=== PATIENT | female | born 1930 | race Caucasian/White ===

== ENCOUNTER 2017-01-21 15:27 | Emergency (ER) | payer MEDICARE, OTHER ==
[~2017-01-21] VITALS: Ht 157.5 cm; Wt 78.0 kg
[~2017-01-21 15:27] MED LIST: ASPI-664 PO; ATOR10TA65 PO; AZIT250T6 PO; CARV12.598 PO; CLOB15CR19; ECON15CR; FOLI-49 PO; LORA1TAB PO; MCN2C15; METO50TA16 PO; NIT4 SL; NPH,100V SC; OLOP2.5D; OMEP40CA6 PO; POTA8TAB46 PO; PSEU30TA38 PO; RESTOP4; SITA100T8 PO; TICA90TA PO; ZOLP10TA5 PO
[2017-01-21 15:33] VITALS: Ht 157.5 cm; Wt 78.0 kg
== END 2017-01-21 21:30 | disposition left against medical advice (07) ==
LOC: E/R 15:27
DX: Z53.21 Procedure and treatment not carried out due to patient leaving prior to being seen by health care provider (principal)

== ENCOUNTER 2017-06-13 07:20 | Inpatient (IN) | payer MEDICARE, OTHER ==
[2017-06-12 16:14] VITALS: BMI 29.3
[2017-06-13] VITALS (25 sets, daily range): BP systolic 108–166; BP diastolic 45–70; PULSE 58–86; RESP 13–25; Ht 157.5 cm; Wt 74.0 kg
[~2017-06-13] VITALS: Ht 157.5 cm; Wt 74.0 kg
[~2017-06-13 07:20] MED LIST changes: +DIAZEPAM 5 MG TAB PO SCH; +DIPHENHYDRAMINE 50 MG CAP PO SCH; +FAMOTIDINE 20 MG TAB PO SCH; +METO-319 PO; -METO50TA16 PO; +SOD CHLORIDE 0.45% 1,000 ML IV SCH
[2017-06-13 08:17] LABS: BASOPHILS % 0.4 % (0.0-2.0); EOSINOPHILS # 0.4 10^3/ul (0.0-0.5); EOSINOPHILS % 5.1 % (0.0-7.0); HEMATOCRIT 34.1 % (37.0-47.0); LYMPHOCYTES # 2.3 10^3/ul (0.8-2.9); MEAN CORPUSCULAR HGB CONC 32.3 g/dl (32.0-37.0); MEAN CORPUSCULAR VOLUME 83.8 fl (82.0-101.0); MEAN PLATELET VOLUME 11.6 fl (7.4-10.4); MONOCYTE # 0.5 10^3/ul (0.3-0.9); MONOCYTES % 6.3 % (0.0-11.0); NEUTROPHIL # 3.9 10^3/ul (1.6-7.5); NEUTROPHILS % 54.9 % (39.0-77.0); PLATELET COUNT 283 10^3/UL (140-415); RED BLOOD COUNT 4.07 10^6/ul (4.20-5.40); RED CELL DISTRIBUTION WIDTH 14.2 % (11.5-14.5); WHITE BLOOD COUNT 7.1 10^3/ul (4.8-10.8)
--- NOTE | 2017-06-13 08:47 | RADRPT ---
PROCEDURE: XR Chest 1 View. CLINICAL INDICATION: Abnormal breath sounds, preop. TECHNIQUE: AP view of the chest was obtained. COMPARISON: CR CHEST 09/13/2015 FINDINGS: The heart size is within normal limits. Calcified atherosclerosis is noted in the aorta. Scattered atelectasis is seen in the bilateral lower lobes. No consolidations are identified. No pneumothorax is seen. Osseous structures are intact. IMPRESSION: Calcified atherosclerosis in the aorta. Scattered atelectasis in the bilateral lower lobes. RPTAT: AA .Dhruv Edgar MD, Date Time Electronically viewed and signed by .Dhruv Edgar MD, on 06/13/2017 08:46 .P/
[2017-06-13 08:51] LABS: CALCIUM 9.6 mg/dl (8.4-10.2); CREATININE 0.84 mg/dl (0.44-1.00); POTASSIUM 4.5 mmol/L (3.5-5.1)
[2017-06-13 08:55] LABS: INR 0.95; PROTIME 12.7 Sec (12.2-14.2)
[2017-06-13 08:56] LABS: PARTIAL THROMBOPLASTIN TIME 28.2 Sec (25.0-35.0)
[2017-06-13] MEDS ORDERED: HEPARIN 1000 UNITS/ML 10 ML INJ ONE ×2 (09:20→09:21)
[2017-06-13] MEDS ORDERED: LIDOCAINE 1% (MDV) 20 ML INJ ONE (09:21)
[2017-06-13] MEDS ORDERED: IODIXANOL LOCM 100 ML BTL ONE (09:21)
[2017-06-13] MEDS ORDERED: NITROGLYCERIN (IC) 100 MCG/ML INJ ONE (09:21)
[2017-06-13] MEDS ORDERED: VERAPAMIL 5 MG INJ ONE (09:21)
[2017-06-13] MEDS ORDERED: MIDAZOLAM 1 MG/ML 2 ML INJ ONE (09:22)
[2017-06-13] MEDS ORDERED: FENTAnyl 50 MCG/ML VIAL ONE ×2 (09:23→10:21)
[2017-06-13] MEDS ORDERED: SOD CHLORIDE 0.9% 1,000 ML IV SCH (10:26)
--- NOTE | 2017-06-13 10:26 | SIPON ---
Date/Time of Note Date/Time of Note DATE: 06/13/17 TIME: 10:21 Operative Report Preoperative Diagnosis 1.Nstemi 2.Chest pain Postoperative Diagnosis 1.Obstructive cad 2.Cardiomyopathy with depressed LVEF Operation/Procedure Performed 1.[facility] Surgeon see signature line surgical physician assistant Olinda Anesthesia: moderate sedation Estimated blood loss: minimal Transfusion Required none Specimen NA Grafts/Implants none Complications none HODA DEL ANGEL Jun 13, 2017 10:26
[2017-06-13] MEDS: HOLD all METFORMIN and METFORMIN CONTAINING medications for 48 hours post procedure. Chec XX SCH (10:30)
[2017-06-13] MEDS ORDERED: AL HYDROX/MG HYDROX/SIMETH 30 ML CUP PO PRN (10:30)
[2017-06-13] MEDS ORDERED: ONDANSETRON 4 MG INJ IV PRN (10:30)
--- NOTE | 2017-06-13 11:40 | CARRPT ---
DATE OF PROCEDURE: 06/13/2017 TYPE OF PROCEDURES: 1. Left heart catheterization. 2. Coronary angiography. 3. Left ventriculogram. 4. Moderate conscious sedation. ATTENDING PHYSICIAN: Dr. Jonathan Richards. INDICATION: Non ST elevation myocardial infarction, cardiomyopathy, congestive heart failure exacerbation. ANESTHESIA: Conscious and local. BRIEF HISTORY: Ms. Collins is an 86-year-old female history of hypertension, dyslipidemia, diabetes mellitus, who had initially presented to outside hospital with complaints of chest pain, shortness of breath and ruled in for [id number] myocardial infarction. Patient was medically managed at that time. She additionally had renal failure. Subsequently, the patient was discharged to outpatient follow up and represented to my office with complaints of chest pain and had her labs checked revealing improvement in renal function, therefore has been referred and presents today in order to undergo left heart catheterization to assess possibility of recurrent significant recurrence of coronary artery symptoms, chest pain, non ST elevation myocardial infarction and new onset cardiomyopathy. PROCEDURE: After informed consent was obtained, patient brought to the [facility], where her right and left radial area was prepped and draped in sterile fashion. 2 percent lidocaine was instilled right radial area in order to achieve adequate local anesthesia. Using the modified Seldinger technique, the radial artery was cannulated and a 6 Latvian arterial sheath was placed. A 6-Latvian JL 3 catheter was used to cannulate the left main coronary ostium. With contrast injection multiple views of the left coronary arterial system were obtained. A JL3 guidewire and a JR4 was used to cannulate the right coronary artery ostium. With contrast injection, multiple views of the right coronary artery system obtained. JR4 was removed and a 6-Latvian pigtail was passed down the ascending aorta and across the aortic valve and placed left ventricle. Left end-diastolic pressure measured. Using a power injector and 20 cc of contrast injected opacifying left ventricle and as pull back across the aortic valve to assess for significant gradient, which there was not. Subsequently this time given the findings of diffuse severe disease the procedure was terminated. The patient's catheters were removed. Patient's sheath was removed. TR band was applied. There were no known complications. FINDINGS: 1. Coronary angiography, right coronary proximally is a 2.5 mm vessel and has an ostial 40 percent stenosis. In the midportion there is tubular stenosis of approximately 30 to 40 percent and a dominant vessel and gives off a PDA which appears to have a very hazy appearing likely 80 percent stenosis in the ostial and proximal portions of the PDA. The patient's LAD and circumflex proximally arise from separate ostia, but they are very close and defer reflexes very well. The circumflex approximately is a 3 mm vessel and has a proximal appearing 20 percent stenosis. Throughout the circumflex the AV groove was a small vessel, with mild diffuse disease in the distal portion. There was a very large branching mid branching obtuse marginal, reasonably sized obtuse marginal mid branching with a widely patent mid stent. Thereafter, the stent there is an approximately a 50-60 percent narrowing. The obtuse marginal branch and 2 small daughter branches with the inferior branch has a very focal, approximately 70 percent stenosis in its mid distal portion. The LAD proximally with a right upper ostium is a 3 mm vessel, short axis takeoff has a 30-40 percent stenosis and then in its midportion becomes subtotally occluded versus completely occluded with bridging collaterals and collateral flow originating from the circumflex branches with recapitulation of the vessel down to the apex and mid portion there are intervening areas of high grade stenosis up to 90 to 95 percent diffusely. Then additionally vessel is generally diffusely very small caliber vessel. 2. Measure of left end-diastolic pressure 23-24, no significant aortic stenosis by gradient. Estimated left ventricular ejection fraction approximately 35-40 percent with apical severe hypokinesis to akinesis and anterolateral severe hypokinesis. No significant aortic stenosis by gradient. TOTAL FLUOROSCOPY TIME: 11.5 minutes. TOTAL CONTRAST: 150 cc. IMPRESSION: 1. Multivessel obstructive coronary disease involving a subtotally occluded LAD versus 100 percent occluded LAD with bridging collaterals diffusely in a small caliber vessel. The high-grade stenosis of the patient ostial PDA and intermediate stenosis in the mid distal circumflex. 2. Widely patent mid circumflex stent. 3. Moderately depressed left ventricular systolic function with wall motion abnormalities as above. 4. Mildly elevated left heart filling pressures. RECOMMENDATIONS: In light of procedure findings at time would 1. Refer patient for consideration of coronary bypass graft surgery. 2. Maximize medical management. 3. Aggressive risk factor reduction. 4. Patient will be admitted to telemetry floor to be consult by Cardiac Surgery. To give further consideration for possible PCI if thought not to be a good surgical candidate. Dictated By: Jonathan Richards MD /oscar/efren /Document#: [id number]
[2017-06-13] MEDS: ACETAMINOPHEN 325 MG TAB PO PRN ×2 (14:36→21:03)
[2017-06-13] MEDS: morphine 2 MG INJ IV PRN (14:42)
[2017-06-13] MEDS ORDERED: GLUCOSE GEL 15 GRAM TUBE BUCCAL PRN (18:30)
[2017-06-13] MEDS ORDERED: ZOLPIDEM 5 MG TAB PO PRN (18:30)
[2017-06-13] MEDS ORDERED: LORAZEPAM 1 MG TAB PO PRN (18:30)
[2017-06-13] MEDS ORDERED: DEXTROSE 50% 50 ML SYRINGE IV PRN ×2 (18:30)
[2017-06-13] MEDS ORDERED: GLUCAGON 1 MG INJ IM PRN (18:30)
[2017-06-13] MEDS ORDERED: GLUCOSE GEL 15 GRAM TUBE PO PRN ×2 (18:30)
[2017-06-13] MEDS ORDERED: NITROGLYCERIN (SL) 0.4 MG TAB SL PRN (18:30)
[2017-06-13] MEDS: ACCU-CHEK XX SCH (19:55)
[2017-06-13] MEDS: INSULIN ASPART [NOVOLOG] 3 ML PEN SC SCH (20:54)
[2017-06-13] MEDS: ATORVASTATIN 40 MG TAB PO SCH (20:55)
[2017-06-13] MEDS: NPH, HUMAN INSULIN ISOPHANE 3ML VIAL SC SCH (20:56)
[2017-06-13] MEDS ORDERED: TICAGRELOR 90 MG TABLET PO SCH (21:00)
--- NOTE | 2017-06-13 23:58 | HP ---
DATE OF ADMISSION: 06/13/2017 CHIEF COMPLAINT: Anginal chest pain. HISTORY OF PRESENT ILLNESS: The patient is an 86-year-old female with history of coronary disease, status post PCI in the past. The patient is being followed by Dr. Richards as an outpatient. The patient recently presented to an outside hospital because of chest pain and shortness of breath. Patient ruled in for non-ST elevation [place]. The patient was medically managed at that time and was sent home. The patient was seen by Dr. Richards as an outpatient and was admitted today for cardiac cath. The patient underwent cardiac cath today and was noted to have multivessel obstructive coronary disease involving subtotally occluded LAD versus 100 percent occluded LAD with bridging collateral diffusely in a small caliber vessel, high grade stenosis of the patient's ostial PDA and intermediate stenosis. The patient also noted to have had a high grade stenosis of the ostial PDA and intermediate stenosis in the mid distal circumflex, moderately depressed LV systolic function with wall motion abnormalities. Dr. Maxime Bryant was called from cardiac surgery standpoint. After angiogram the patient did have 1 episode of chest pain, for which patient was given morphine and patient is currently chest pain free. The patient does not have any orthopnea. Denies any abdominal pain. No reported nausea or vomiting. No reported headache. No reported leg pain or any focal weakness. No reported fever or chills. No reported syncope. No reported dysuria or hematuria. No reported hematemesis or melena. The patient does have history of diabetes, for which patient is taking insulin. REVIEW OF SYSTEMS: Unremarkable. PAST MEDICAL HISTORY: As stated above. SOCIAL HISTORY: No smoking or alcohol. FAMILY HISTORY: Positive for coronary disease and AZ. PAST SURGICAL HISTORY: Patient is status post mastectomy for breast cancer. ALLERGIES: NONE. PHYSICAL EXAMINATION: GENERAL: Patient is conscious, awake, alert. VITAL SIGNS: Temperature 98.2, pulse 86, respirations 20, blood pressure 199/67, O2 sat 98 percent room air. HEENT: Normocephalic, atraumatic. NECK: Normal. Oropharynx clear. NECK: Supple. No masses or thyromegaly. CHEST: Fairly clear. . CARDIOVASCULAR: Regular rate and rhythm. No murmur, gallop, or rub. ABDOMEN: Soft, nontender. No palpable mass. EXTREMITIES: No edema, clubbing, or cyanosis. Pedal pulses faintly palpable. SKIN: Without acute rash. PSYCHIATRIC: No agitation or anxiety. LABORATORY: Done this morning. WBC 7.1, hemoglobin 11, platelets 283. Sodium 139, potassium 4.5, BUN 14, creatinine 0.8, glucose 134, calcium 9.6, LDL 113, HDL 45. Chest x-ray, reviewed. The patient has scattered atelectasis in the lower lobes. No congestive heart failure. IMPRESSION: 1. Multivessel obstructive coronary disease as described above. 2. Moderate left ventricle systolic dysfunction. Estimated left ventricular ejection fraction approximately 35 to 40 percent with apical severe hypokinesia to akinesia and anteroseptal severe hypokinesia. 3. Hypertension. 4. Diabetes. 5. Dyslipidemia. 6. History of breast cancer. PLAN: Patient admitted on telemetry floor. Patient will be started on diabetic diet and will be given normal insulin as per protocol to prevent contrast induced nephropathy. Will continue carvedilol for hypertension and coronary disease. The patient has been taking NPH insulin for diabetes, will continue NPH as at home and will also add sliding scale insulin. The patient was on Brilinta at home, will hold off since patient will be seen by cardiac surgery. Will add aspirin and also LAITH inhibitor as tolerated due to systolic dysfunction. Will also add statins. Plan of care discussed with patient's family. Further recommendations depend on the hospital course and recommendations from multiple consultants. Plan of care discussed with patient's family. Dictated By: Luca Davenport MD /oscar/merced /Document#: [id number]
[2017-06-14] VITALS (28 sets, daily range): BP systolic 92–180; BP diastolic 44–91; PULSE 62–85; RESP 14–32
[2017-06-14] MEDS: ACCU-CHEK XX SCH ×4 (01:57→19:35)
[2017-06-14] MEDS: PANTOPRAZOLE (EC) 40 MG TAB PO SCH (06:36)
[2017-06-14] MEDS ORDERED: DIPHENHYDRAMINE 50 MG CAP PO ONE (07:00)
[2017-06-14] MEDS ORDERED: DIAZEPAM 5 MG TAB PO ONE (07:00)
--- NOTE | 2017-06-14 07:22 | PN ---
Date/Time of Note Date/Time of Note DATE: 06/14/17 TIME: 07:17 Assessment/Plan VTE Prophylaxis VTE Prophylaxis Intervention: ambulation Lines/Catheters IV Catheter Type (from [facility]): Peripheral IV Assessment/Plan Assessment/Plan Has significant obstruction of distal LAD with anterior wall infarct. Post infarction angina seems to be present. Already has had circ stent. Has some ostial obstruction of the PDA and mid LAD obstruction with left to left and right to left collaterals. Due to her age and obesity with reduced cardiac function surgery would carry moderate morbity and mortality. LAD and PDA could most likely be approached by stenting and would have less risk and probably as good a benefit to help symptoms. Exam/Review of Systems Vital Signs Vitals Vital Signs Date Time Temp Pulse Resp B/P Pulse Ox O2 Delivery O2 Flow Rate FiO2 06/14/17 04:20 63 06/14/17 03:23 98.4 19 130/62 97 06/13/17 20:00 Nasal Cannula 06/13/17 11:57 2.0 Intake and Output 06/13/17 06/13/17 06/14/17 15:00 23:00 07:00 Intake Total 350 ml 450 ml Balance 350 ml 450 ml Results Result Diagram: 06/13/17 0750 06/13/17 0750 Results 24 hrs Laboratory Tests Test 06/13/17 07:47 06/13/17 07:50 06/13/17 20:44 Bedside Glucose 122 152 White Blood Count 7.1 # Red Blood Count 4.07 L Hemoglobin 11.0 L Hematocrit 34.1 L Mean Corpuscular Volume 83.8 Mean Corpuscular Hemoglobin 27.0 L Mean Corpuscular Hemoglobin Concent 32.3 Red Cell Distribution Width 14.2 Platelet Count 283 Mean Platelet Volume 11.6 H Neutrophils % 54.9 Lymphocytes % 33.0 Monocytes % 6.3 Eosinophils % 5.1 Basophils % 0.4 Nucleated Red Blood Cells % 0.0 Neutrophils # 3.9 Lymphocytes # 2.3 Monocytes # 0.5 Eosinophils # 0.4 Basophils # 0.0 Nucleated Red Blood Cells # 0.0 Prothrombin Time 12.7 Prothrombin Time Ratio 1.0 INR International Normalized Ratio 0.95 Activated Partial Thromboplast Time 28.2 Sodium Level 139 Potassium Level 4.5 Chloride Level 103 Carbon Dioxide Level 28 Anion Gap 13 Blood Urea Nitrogen 14 Creatinine 0.84 Glucose Level 134 Calcium Level 9.6 Triglycerides Level 125 Cholesterol Level 183 LDL Cholesterol, Calculated 113 HDL Cholesterol 45 Cholesterol/HDL Ratio 4.0 Medications Medications Current Medications Miscellaneous Information (* Miscellaneous Pharmacy Order) HOLD all METFORMIN ... ONCE XX ; Start 06/13/17 at 10:30; Stop 06/15/17 at 10:29 Acetaminophen (Tylenol Tab) 650 mg Q4H PRN PO NON-CARDIAC PAIN LEVEL (1-3) Last administered on 06/13/17 21:03; Admin Dose 650 MG; Start 06/13/17 at 10:30 Morphine Sulfate (morphine) 1 mg Q2H PRN IV FOR NON CARDIAC PAIN (4-10) Last administered on 06/13/17 14:42; Admin Dose 1 MG; Start 06/13/17 at 10:30 Al Hydrox/Mg Hydrox/Simethicone (Mag-Al Plus) 30 ml Q4H PRN PO GASTROINTESTINAL UPSET Last administered on 06/13/17 14:36; Admin Dose 30 ML; Start 06/13/17 at 10:30 Ondansetron HCl (Zofran Inj) 4 mg Q4H PRN IV NAUSEA AND/OR VOMITING; Start at 10:30 Carvedilol (Coreg) 12.5 mg BID PO Last administered on 06/13/17 20:55; Admin Dose 12.5 MG; Start 06/13/17 at 21:00 Folic Acid (Folic Acid) 1 mg DAILY PO ; Start 06/14/17 at 09:00 Lorazepam (Ativan) 1 mg DAILY PRN PO AGITATION/ANXIETY; Start 06/13/17 at 18:30 Nitroglycerin (Nitroglycerin (Sl Tab) 0.4 Mg) 0.4 tab [id number] PRN SL CHEST PAIN; Start 06/13/17 at 18:30 Insulin Human NPH (Humulin N) 20 unit HS SC Last administered on 06/13/17 20: 56; Admin Dose 20 UNIT; Start 06/13/17 at 21:00 Insulin Human NPH (Humulin N) 40 unit QAM SC ; Start 06/14/17 at 09:00 Potassium Chloride (Micro-K) 8 meq DAILY PO ; Start 06/14/17 at 09:00 Pantoprazole (Protonix Tab) 40 mg DAILY@06 PO Last administered on 06/14/17 06 :36; Admin Dose 40 MG; Start 06/14/17 at 06:00 Diagnostic Test (Pha) (Accu-Chek) 1 ea 02 XX ; Start 06/14/17 at 02:00 Atorvastatin Calcium (Lipitor) 40 mg HS PO Last administered on 06/13/17 20:55 ; Admin Dose 40 MG; Start 06/13/17 at 21:00 Aspirin (Ecotrin) 325 mg DAILY PO ; Start 06/14/17 at 09:00 Miscellaneous Information 1 ea NOTE XX ; Start 06/13/17 at 18:30 Glucose (Glutose) 15 gm Q15M PRN PO DECREASED GLUCOSE; Start 06/13/17 at 18:30 Glucose (Glutose) 22.5 gm Q15M PRN PO DECREASED GLUCOSE; Start 06/13/17 at 18: 30 Dextrose (D50w Syringe) 25 ml Q15M PRN IV DECREASED GLUCOSE; Start 06/13/17 at 18:30 Dextrose (D50w Syringe) 50 ml Q15M PRN IV DECREASED GLUCOSE; Start 06/13/17 at 18:30 Glucagon (Glucagen) 1 mg Q15M PRN IM DECREASED GLUCOSE; Start 06/13/17 at 18:30 Glucose (Glutose) 15 gm Q15M PRN BUCCAL DECREASED GLUCOSE; Start 06/13/17 at 18 :30 BALDEMAR ENCISO MD Jun 14, 2017 07:22
[2017-06-14 08:19] LABS: BASOPHILS % 0.3 % (0.0-2.0); EOSINOPHILS # 0.4 10^3/ul (0.0-0.5); EOSINOPHILS % 6.3 % (0.0-7.0); HEMATOCRIT 34.2 % (37.0-47.0); HEMOGLOBIN 10.7 g/dl (12.0-16.0); LYMPHOCYTES # 2.1 10^3/ul (0.8-2.9); LYMPHOCYTES % 30.3 % (15.0-51.0); MEAN CORPUSCULAR HEMOGLOBIN 27.2 pg (29.0-33.0); MEAN CORPUSCULAR HGB CONC 31.3 g/dl (32.0-37.0); MEAN PLATELET VOLUME 11.7 fl (7.4-10.4); MONOCYTE # 0.5 10^3/ul (0.3-0.9); MONOCYTES % 6.9 % (0.0-11.0); NEUTROPHIL # 3.9 10^3/ul (1.6-7.5); NEUTROPHILS % 55.9 % (39.0-77.0); PLATELET COUNT 261 10^3/UL (140-415); RED BLOOD COUNT 3.93 10^6/ul (4.20-5.40); RED CELL DISTRIBUTION WIDTH 14.3 % (11.5-14.5)
[2017-06-14] MEDS ORDERED: FENTAnyl 50 MCG/ML VIAL ONE (08:23)
[2017-06-14] MEDS ORDERED: IODIXANOL LOCM 100 ML BTL ONE (08:23)
[2017-06-14] MEDS ORDERED: HEPARIN 1000 UNITS/ML 10 ML INJ ONE (08:23)
[2017-06-14] MEDS ORDERED: BIVALIRUDIN 250MG /NS 50 ML 50 ML IVPB ONE (08:23)
[2017-06-14] MEDS ORDERED: LIDOCAINE 1% (MDV) 20 ML INJ ONE (08:23)
[2017-06-14] MEDS ORDERED: MIDAZOLAM 1 MG/ML 2 ML INJ ONE (08:23)
[2017-06-14] MEDS ORDERED: VERAPAMIL 5 MG INJ ONE (08:24)
[2017-06-14] MEDS ORDERED: NITROGLYCERIN (IC) 100 MCG/ML INJ ONE (08:24)
[2017-06-14] MEDS: FOLIC ACID 1 MG TAB PO SCH (08:29)
[2017-06-14] MEDS: POTASSIUM CHLORIDE (SR) 8 MEQ CAP PO SCH (08:30)
[2017-06-14 08:37] LABS: INR 0.95; PROTIME 12.7 Sec (12.2-14.2)
[2017-06-14] MEDS: INSULIN ASPART [NOVOLOG] 3 ML PEN SC SCH ×4 (08:39→20:52)
[2017-06-14] MEDS: NPH, HUMAN INSULIN ISOPHANE 3ML VIAL SC SCH ×2 (09:00→21:42)
[2017-06-14] MEDS ORDERED: ASPIRIN (EC) 325 MG TAB PO SCH (09:00)
[2017-06-14 09:42] LABS: CALCIUM 9.4 mg/dl (8.4-10.2); CREATININE 0.78 mg/dl (0.44-1.00); POTASSIUM 4.7 mmol/L (3.5-5.1)
[2017-06-14] MEDS: HOLD all METFORMIN and METFORMIN CONTAINING medications for 48 hours post procedure. Chec XX SCH (10:30)
[2017-06-14] MEDS ORDERED: TICAGRELOR 90 MG TABLET ONE (10:40)
[2017-06-14] MEDS ORDERED: ASPIRIN 325 MG TAB ONE (10:40)
--- NOTE | 2017-06-14 10:48 | CONS ---
DATE OF ADMISSION: 06/13/2017 DATE OF CONSULTATION: 06/14/2017 HISTORY OF PRESENT ILLNESS: Mrs. Collins is an 86-year-old female I was asked to see in consultation for opinion regarding coronary revascularization. She underwent an outpatient angiogram yesterday, and was admitted to the hospital. She had recently apparently been seen for chest pain and shortness of breath, and was found to have a non-ST TN. She was treated medically initially and then seen by Dr. Richards who scheduled the cath. The patient has a background history of a stent, having been placed in a circumflex vessel. At the cath yesterday, she had a subtotal LAD with both [id number]-[id number] and [id number]-[id number]-[id number] collateral to the LAD. She also had a significant stenosis at the orifice of the PDA. She had depressed LV function with what appeared to be an anterior wall infarct, consistent with a subtotal occlusion of the LAD. The patient apparently has been having symptoms of angina, as well as complaints of shortness of breath. She is diabetic and obese, and has hypercholesterolemia. Her other significant past medical history besides the above, include a history of breast cancer a number of years ago, apparently without evidence of recurrence. ALLERGIES: SHE HAS NO ALLERGIES. MEDICATION: Include Brilinta 90 mg every 12 h. Carvedilol 12.5 mg twice daily. Toprol 50 mg daily. Nitroglycerine. REVIEW OF SYSTEMS: Not obtainable due to language barrier at this time. She apparently has a daughter who is not present at the current time. PHYSICAL EXAMINATION: GENERAL: The patient is awake, and alert looking female. VITAL SIGNS: Pulse was 75, blood pressure 137/65. HEENT: Occular movements are full. Pupils were equal and reactive. Mouth with no oral lesions. Tongue was midline. NECK: I could not hear bruits. LUNGS: The lung loera were entirely clear. HEART: Regular rhythm without rubs or murmurs heard. ABDOMEN: Clearly obese, without tenderness or masses. EXTREMITIES: She had recent puncture in the right radial artery. She had a left radial pulse. Difficult to feel femoral pulses and pedal pulses, although her feet are warm. NEUROLOGIC: She moves the upper and lower extremities without gross limitation. IMPRESSION: 1. Triple vessel disease, status post-stenting of the circumflex with some res-stenosis, but not severe. 2. Subtotal occlusion of the left anterior descending with [id number] and [id number] collaterals, with orifice lesion at the PDA. 3. Moderately depressed left ventricular function, with anterior wall infarction. 4. Obesity. 5. Diabetes. RECOMMENDATIONS: At this point, most likely the culprit lesion has to do with ischemia and the distribution of the LAD. She clearly appears to have infarcted in this area, but may well have some viability. I think a safer procedure, rather than subjecting her to major surgery, would be an angioplasty and stenting of the LAD, I suspect it could be opened by stenting. After which, if this is successful one could approach the PDA and stent that orifice lesion as well. She is already on Brilinta. I think this approach would provide her as good a symptomatic control as surgery with less risk, as I feel she has a moderate risk of not doing well with surgery. Thank you for allowing me to see her. Dictated By: Eugene Olson MD /oscar/yahir /Document#: [id number]
[2017-06-14] MEDS ORDERED: ZOLPIDEM 5 MG TAB PO PRN (11:00)
[2017-06-14] MEDS ORDERED: SOD CHLORIDE 0.9% 1,000 ML IV SCH (11:00)
[2017-06-14] MEDS ORDERED: OXYCODONE/ACETAMINOPHEN (5/325) TAB PO PRN (11:00)
[2017-06-14] MEDS ORDERED: AL HYDROX/MG HYDROX/SIMETH 30 ML CUP PO PRN (11:00)
[2017-06-14] MEDS ORDERED: ACETAMINOPHEN 325 MG TAB PO PRN (11:00)
[2017-06-14] MEDS ORDERED: ONDANSETRON 4 MG INJ IV PRN (11:00)
--- NOTE | 2017-06-14 11:09 | SIPON ---
Date/Time of Note Date/Time of Note DATE: 06/14/17 TIME: 11:06 Operative Report Preoperative Diagnosis 1.Obstructive cad 2.Cardiomyopathy 3.Nstemi Postoperative Diagnosis 1.successful PTCA/stent x 2 to LAD with ALLAN Operation/Procedure Performed 1.C 2.PTCA/stent x 2 with ALLAN to LAD Surgeon see signature line sourcing assistant Shaninekeith Anesthesia: general Estimated blood loss: minimal Transfusion Required none Specimen none Grafts/Implants none Complications none HODA DEL ANGEL Jun 14, 2017 11:09
--- NOTE | 2017-06-14 12:06 | CONS ---
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 2.cardiomyopathy-EF 35-40% 3.h/o NSTEMI 4.HTN 5.Anemia Recc: -Tele -serial ecg's -Continue coreg and start ACEI afterload reduction -Continue asa 81 mg daily with brilinta 90 mg po bid -Follow volume status and creatnine closely -Continue statin Problems: Consultation Date/Type/Reason Admit Date/Time Jun 13, 2017 at 10:29 Initial Consult Date 06/13/2017 Type of Consultation: Cardiology Reason for Consultation cad/cardiomyopathy/CHF Referring Provider: ALEX LOPEZ MD Exam/Review of Systems Vital Signs Vitals Vital Signs Date Time Temp Pulse Resp B/P Pulse Ox O2 Delivery O2 Flow Rate FiO2 06/14/17 08:20 73 06/14/17 07:30 98.0 18 137/65 98 06/13/17 20:00 Nasal Cannula 06/13/17 11:57 2.0 Intake and Output 06/13/17 06/13/17 06/14/17 15:00 23:00 07:00 Intake Total 350 ml 450 ml Balance 350 ml 450 ml Exam Review of Systems: CONSTITUTIONAL: No fevers, chills. PULMONARY: mild sob CARDIOVASCULAR:intermittent chest pain GASTROINTESTINAL: No nausea/vomiting. GENITOURINARY: No hematuria/dysuria. MUSCULOSKELETAL: No myagias/arthalgias. PSYCHIATRIC: The patient denies depression. NEUROLOGIC: No weakness Constitutional: alert, oriented Psych: no complaints Head: normocephalic ENMT: mucosa pink and moist Neck: jvd (9cm water), supple Respiratory: diminished breath sounds Cardiovascular: regular rate and rhythm Gastrointestinal: non-tender, soft Musculoskeletal: muscle tone (normal) Extremities: edema (none) Neurological: other (No focal deficits) Results Result Diagram: 06/14/17 0712 06/14/17 0710 Results 24 hrs Laboratory Tests Test 06/13/17 20:44 06/14/17 07:10 06/14/17 07:12 06/14/17 08:37 Bedside Glucose 152 141 Prothrombin Time 12.7 Prothrombin Time Ratio 1.0 INR International Normalized Ratio 0.95 Sodium Level 139 Potassium Level 4.7 Chloride Level 104 Carbon Dioxide Level 27 Anion Gap 13 Blood Urea Nitrogen 17 Creatinine 0.78 Glucose Level 130 Hemoglobin A1c 7.5 H Calcium Level 9.4 White Blood Count 7.0 Red Blood Count 3.93 L Hemoglobin 10.7 L Hematocrit 34.2 L Mean Corpuscular Volume 87.0 Mean Corpuscular Hemoglobin 27.2 L Mean Corpuscular Hemoglobin Concent 31.3 L Red Cell Distribution Width 14.3 Platelet Count 261 Mean Platelet Volume 11.7 H Neutrophils % 55.9 Lymphocytes % 30.3 Monocytes % 6.9 Eosinophils % 6.3 Basophils % 0.3 Nucleated Red Blood Cells % 0.0 Neutrophils # 3.9 Lymphocytes # 2.1 Monocytes # 0.5 Eosinophils # 0.4 Basophils # 0.0 Nucleated Red Blood Cells # 0.0 Test 06/14/17 11:42 Bedside Glucose 119 Medications Medications Current Medications Miscellaneous Information (* Miscellaneous Pharmacy Order) HOLD all METFORMIN ... ONCE XX ; Start 06/13/17 at 10:30; Stop 06/15/17 at 10:29 Acetaminophen (Tylenol Tab) 650 mg Q4H PRN PO NON-CARDIAC PAIN LEVEL (1-3) Last administered on 06/13/17 21:03; Admin Dose 650 MG; Start 06/13/17 at 10:30 Morphine Sulfate (morphine) 1 mg Q2H PRN IV FOR NON CARDIAC PAIN (4-10) Last administered on 06/13/17 14:42; Admin Dose 1 MG; Start 06/13/17 at 10:30 Al Hydrox/Mg Hydrox/Simethicone (Mag-Al Plus) 30 ml Q4H PRN PO GASTROINTESTINAL UPSET Last administered on 06/13/17 14:36; Admin Dose 30 ML; Start 06/13/17 at 10:30 Ondansetron HCl (Zofran Inj) 4 mg Q4H PRN IV NAUSEA AND/OR VOMITING; Start at 10:30 Carvedilol (Coreg) 12.5 mg BID PO Last administered on 06/14/17 08:30; Admin Dose 12.5 MG; Start 06/13/17 at 21:00 Folic Acid (Folic Acid) 1 mg DAILY PO Last administered on 06/14/17 08:29; Admin Dose 1 MG; Start 06/14/17 at 09:00 Lorazepam (Ativan) 1 mg DAILY PRN PO AGITATION/ANXIETY; Start 06/13/17 at 18:30 Nitroglycerin (Nitroglycerin (Sl Tab) 0.4 Mg) 0.4 tab [id number] PRN SL CHEST PAIN; Start 06/13/17 at 18:30 Insulin Human NPH (Humulin N) 20 unit HS SC Last administered on 06/13/17 20: 56; Admin Dose 20 UNIT; Start 06/13/17 at 21:00 Insulin Human NPH (Humulin N) 40 unit QAM SC ; Start 06/14/17 at 09:00 Potassium Chloride (Micro-K) 8 meq DAILY PO Last administered on 06/14/17 08: 30; Admin Dose 8 MEQ; Start 06/14/17 at 09:00 Pantoprazole (Protonix Tab) 40 mg DAILY@06 PO Last administered on 06/14/17 06 :36; Admin Dose 40 MG; Start 06/14/17 at 06:00 Diagnostic Test (Pha) (Accu-Chek) 1 ea 02 XX ; Start 06/14/17 at 02:00 Atorvastatin Calcium (Lipitor) 40 mg HS PO Last administered on 06/13/17 20:55 ; Admin Dose 40 MG; Start 06/13/17 at 21:00 Aspirin (Ecotrin) 325 mg DAILY PO Last administered on 06/14/17 08:30; Admin Dose 325 MG; Start 06/14/17 at 09:00 Miscellaneous Information 1 ea NOTE XX ; Start 06/13/17 at 18:30 Glucose (Glutose) 15 gm Q15M PRN PO DECREASED GLUCOSE; Start 06/13/17 at 18:30 Glucose (Glutose) 22.5 gm Q15M PRN PO DECREASED GLUCOSE; Start 06/13/17 at 18: 30 Dextrose (D50w Syringe) 25 ml Q15M PRN IV DECREASED GLUCOSE; Start 06/13/17 at 18:30 Dextrose (D50w Syringe) 50 ml Q15M PRN IV DECREASED GLUCOSE; Start 06/13/17 at 18:30 Glucagon (Glucagen) 1 mg Q15M PRN IM DECREASED GLUCOSE; Start 06/13/17 at 18:30 Glucose (Glutose) 15 gm Q15M PRN BUCCAL DECREASED GLUCOSE; Start 06/13/17 at 18 :30 Miscellaneous Information (* Miscellaneous Pharmacy Order) Hold all Metformin ... ONCE ONCE XX ; Start 06/14/17 at 11:00; Stop 06/14/17 at 11:01; Status UNV Acetaminophen (Tylenol Tab) 650 mg Q4H PRN PO NON-CARDIAC PAIN LEVEL 1-3; Start 06/14/17 at 11:00; Status UNV Oxycodone/ Acetaminophen (Percocet (5/ 325)) 1 tab Q4H PRN PO REPORTED NON- CARDIAC PAIN 4-7; Start 06/14/17 at 11:00; Status UNV Al Hydrox/Mg Hydrox/Simethicone (Mag-Al Plus) 30 ml Q4H PRN PO GASTROINTESTINAL UPSET; Start 06/14/17 at 11:00; Status UNV Ondansetron HCl (Zofran Inj) 4 mg Q4H PRN IV NAUSEA AND/OR VOMITING; Start at 11:00; Status UNV Ticagrelor (Brilinta) 90 mg BID PO ; Start 06/14/17 at 21:00; Status UNV HODA DEL ANGEL Jun 14, 2017 12:06
[2017-06-14] MEDS: morphine 2 MG INJ IV PRN (12:34)
--- NOTE | 2017-06-14 16:33 | RADRPT ---
Vent Rate: 73 bpm RR Interval: 0 msec MT Interval: 174 msec QRS Duration: 90 msec QT Interval: 420 msec QTC Interval: 462 msec P-R-T [place]: 38 - 63 - 73 degrees Normal sinus rhythm Cannot rule out Anterior infarct , age undetermined Abnormal ECG Electronically Signed By: Tadeo Melvin [id number]
--- NOTE | 2017-06-14 16:36 | RADRPT ---
Vent Rate: 71 bpm RR Interval: 0 msec TX Interval: 188 msec QRS Duration: 90 msec QT Interval: 430 msec QTC Interval: 467 msec P-R-T [place]: 21 - 39 - 64 degrees Normal sinus rhythm Normal ECG Electronically Signed By: Tadeo Melvin [id number]
--- NOTE | 2017-06-14 16:38 | RADRPT ---
Vent Rate: 65 bpm RR Interval: 0 msec MS Interval: 186 msec QRS Duration: 90 msec QT Interval: 440 msec QTC Interval: 457 msec P-R-T [place]: 69 - 62 - 89 degrees Normal sinus rhythm Normal ECG Electronically Signed By: Tadeo Melvin [id number]
--- NOTE | 2017-06-14 17:18 | PN ---
Date/Time of Note Date/Time of Note DATE: 06/14/17 TIME: 17:09 Assessment/Plan VTE Prophylaxis VTE Prophylaxis Intervention: SCD's Lines/Catheters IV [facility] Peripheral IV Urinary Cath still in place: No Assessment/Plan Chief Complaint/Hosp Course Patient complains of right femoral site pain , no hematoma, BLE pulses present, continue [place] as needed for pain. Patient denies any chest pain denies any shortness of breath. Condition and plan of care discussed with patient's family at the bedside. Blood sugar is well controlled. Problems: Assessment/Plan - Multivessel obstructive coronary disease as described above. S/p PTCA/stent x [address] Richards. Continue aspirin and Brilinta. Continue telemetry monitoring. - Cardiomyopathy with ejection fraction of 35-40% - Hypertension. Continue Coreg. - Dyslipidemia. Continue statin. - Diabetes mellitus type II. Continue current insulin management. Monitor blood sugar q. before meals and at bedtime. - History of breast cancer. Recommendations based on clinical course. Plan of care discussed with Dr. Davenport. Exam/Review of Systems Vital Signs Vitals Vital Signs Date Time Temp Pulse Resp B/P Pulse Ox O2 Delivery O2 Flow Rate FiO2 06/14/17 16:30 98.7 81 21 162/68 91 Nasal Cannula 2.0 Intake and Output 06/13/17 06/13/17 06/14/17 15:00 23:00 07:00 Intake Total 350 ml 450 ml Balance 350 ml 450 ml Exam Constitutional: alert Neck: supple Respiratory: normal air movement Cardiovascular: nl pulses Gastrointestinal: non-tender, soft Extremities: normal pulses Results Result Diagram: 06/14/17 0712 06/14/17 0710 Results 24 hrs Laboratory Tests Test 06/13/17 20:44 06/14/17 07:10 06/14/17 07:12 06/14/17 08:37 Bedside Glucose 152 141 Prothrombin Time 12.7 Prothrombin Time Ratio 1.0 INR International Normalized Ratio 0.95 Sodium Level 139 Potassium Level 4.7 Chloride Level 104 Carbon Dioxide Level 27 Anion Gap 13 Blood Urea Nitrogen 17 Creatinine 0.78 Glucose Level 130 Hemoglobin A1c 7.5 H Calcium Level 9.4 White Blood Count 7.0 Red Blood Count 3.93 L Hemoglobin 10.7 L Hematocrit 34.2 L Mean Corpuscular Volume 87.0 Mean Corpuscular Hemoglobin 27.2 L Mean Corpuscular Hemoglobin Concent 31.3 L Red Cell Distribution Width 14.3 Platelet Count 261 Mean Platelet Volume 11.7 H Neutrophils % 55.9 Lymphocytes % 30.3 Monocytes % 6.9 Eosinophils % 6.3 Basophils % 0.3 Nucleated Red Blood Cells % 0.0 Neutrophils # 3.9 Lymphocytes # 2.1 Monocytes # 0.5 Eosinophils # 0.4 Basophils # 0.0 Nucleated Red Blood Cells # 0.0 Test 06/14/17 11:42 06/14/17 15:27 Bedside Glucose 119 109 Medications Medications Current Medications Miscellaneous Information (* Miscellaneous Pharmacy Order) HOLD all METFORMIN ... ONCE XX ; Start 06/13/17 at 10:30; Stop 06/15/17 at 10:29 Morphine Sulfate (morphine) 1 mg Q2H PRN IV FOR NON CARDIAC PAIN (4-10) Last administered on 06/14/17 12:34; Admin Dose 1 MG; Start 06/13/17 at 10:30 Carvedilol (Coreg) 12.5 mg BID PO Last administered on 06/14/17 08:30; Admin Dose 12.5 MG; Start 06/13/17 at 21:00 Folic Acid (Folic Acid) 1 mg DAILY PO Last administered on 06/14/17 08:29; Admin Dose 1 MG; Start 06/14/17 at 09:00 Lorazepam (Ativan) 1 mg DAILY PRN PO AGITATION/ANXIETY; Start 06/13/17 at 18:30 Nitroglycerin (Nitroglycerin (Sl Tab) 0.4 Mg) 0.4 tab [id number] PRN SL CHEST PAIN; Start 06/13/17 at 18:30 Insulin Human NPH (Humulin N) 20 unit HS SC Last administered on 06/13/17 20: 56; Admin Dose 20 UNIT; Start 06/13/17 at 21:00 Insulin Human NPH (Humulin N) 40 unit QAM SC ; Start 06/14/17 at 09:00 Potassium Chloride (Micro-K) 8 meq DAILY PO Last administered on 06/14/17 08: 30; Admin Dose 8 MEQ; Start 06/14/17 at 09:00 Pantoprazole (Protonix Tab) 40 mg DAILY@06 PO Last administered on 06/14/17 06 :36; Admin Dose 40 MG; Start 06/14/17 at 06:00 Diagnostic Test (Pha) (Accu-Chek) 1 ea 02 XX ; Start 06/14/17 at 02:00 Atorvastatin Calcium (Lipitor) 40 mg HS PO Last administered on 06/13/17t 20:55 ; Admin Dose 40 MG; Start 06/13/17 at 21:00 Miscellaneous Information 1 ea NOTE XX ; Start 06/13/17 at 18:30 Glucose (Glutose) 15 gm Q15M PRN PO DECREASED GLUCOSE; Start 06/13/17 at 18:30 Glucose (Glutose) 22.5 gm Q15M PRN PO DECREASED GLUCOSE; Start 06/13/17 at 18: 30 Dextrose (D50w Syringe) 25 ml Q15M PRN IV DECREASED GLUCOSE; Start 06/13/17 at 18:30 Dextrose (D50w Syringe) 50 ml Q15M PRN IV DECREASED GLUCOSE; Start 06/13/17 at 18:30 Glucagon (Glucagen) 1 mg Q15M PRN IM DECREASED GLUCOSE; Start 06/13/17 at 18:30 Glucose (Glutose) 15 gm Q15M PRN BUCCAL DECREASED GLUCOSE; Start 06/13/17 at 18 :30 Acetaminophen (Tylenol Tab) 650 mg Q4H PRN PO NON-CARDIAC PAIN LEVEL 1-3; Start 06/14/17 at 11:00 Oxycodone/ Acetaminophen (Percocet (5/ 325)) 1 tab Q4H PRN PO REPORTED NON- CARDIAC PAIN 4-7; Start 06/14/17 at 11:00 Al Hydrox/Mg Hydrox/Simethicone (Mag-Al Plus) 30 ml Q4H PRN PO GASTROINTESTINAL UPSET; Start 06/14/17 at 11:00 Ondansetron HCl 4 mg 4 mg Q4H PRN IV NAUSEA AND/OR VOMITING; Start 06/14/17 at 11:00 Sodium Chloride (NS) 1,000 ml @ 75 mls/hr [id number] IV Last administered on 06/14t 11:26; Admin Dose 75 MLS/HR; Start 06/14/17 at 11:00; Stop 06/15/17 at 00: 19 Ticagrelor (Brilinta) 90 mg BID PO ; Start 06/14/17 at 21:00 Aspirin (Aspirin) 81 mg DAILY PO ; Start 06/15/17 at 09:00 MANE VIDAL Jun 14, 2017 17:18
[2017-06-14] MEDS: ATORVASTATIN 40 MG TAB PO SCH (20:54)
[2017-06-14] MEDS: TICAGRELOR 90 MG TABLET PO SCH (20:58)
[2017-06-15] VITALS (16 sets, daily range): BP systolic 90–139; BP diastolic 43–110; PULSE 69–81; RESP 14–25
--- NOTE | 2017-06-15 01:36 | CARRPT ---
DATE OF PROCEDURE: 06/14/2017 TYPE OF PROCEDURE: 1. Left heart catheterization. 2. Coronary angiography. 3. Percutaneous transluminal coronary angioplasty with placement of Synergy drug-eluting stents x2 to proximal mid LAD, 2.25 x 32 and 2.5 x 32. ATTENDING PHYSICIAN: Jonathan Richards MD REFERRING PHYSICIAN: Self-referred. INDICATION: Obstructive coronary artery disease by prior diagnostic left heart catheterization, cardiomyopathy with decreased left ventricular ejection fraction, and recent [id number] myocardial infarction is currently admitted to the hospital for congestive heart failure. TYPE OF ANESTHESIA: Conscious local. BRIEF HISTORY: The patient is an 86-year-old female with a history of hypertension, dyslipidemia, diabetes mellitus, coronary artery disease, status post prior PTCA and stent placement, cardiomyopathy, decreased left ejection fraction, who initially presented with complaints of substernal chest pain and congestive heart failure at an outside hospital. Patient there ruled in for a [id number] myocardial infarction and was also in renal failure. Was medically managed at that time and was discharged to outpatient follow up. Patient represented to my office with recurrent chest pain, shortness of breath and was referred for outpatient left heart catheterization after improvement in renal function. The patient underwent a diagnostic left heart catheterization one the day prior. She was found to have severe multivessel obstructive coronary artery disease. Patient was referred for surgery but patient and family refused surgical intervention. States now the patient was brought back in order to undergo attempted PTCA and stent placement to LAD. PROCEDURE: After informed consent was obtained, the patient was brought to [facility] cardiac paint laboratory technician, where her right groin was prepped and draped in the sterile fashion, 2 percent lidocaine was instilled into the right groin in order to achieve adequate local anesthesia. Using the modified Seldinger technique, the right groin was cannulated and a 6-Singaporean arterial sheath was placed. A 6-Singaporean Q 3.5 initial guide was used to cannulate the left main coronary ostium. With contrast injection, multiple views of the left coronary artery system were obtained. Subsequently at this time, the patient was given Angiomax bolus, continuous infusion. A 0.014 harbor boat pilot 50 guidewire was passed distal into the lesion and passed through the areas of chronic total obstruction. Subsequently at this time using a 2.0 x 12 mm balloon, multiple free inflations were made from mid to proximal throughout the LAD. Subsequently at this time we were able to pass a 2.25 x 32 mm drug-eluting stent into the mid LAD where it was deployed at 12 atmospheres, post-dilated with the stent delivery system at 14 atmospheres. The stent balloon was then pulled back away from the distal edge and inflated to 18 atmospheres x2. This was removed and subsequently at this time a second 2.5 x 32 mm drug-eluting stent was added proximally with 1- 2 mm overlap, and it was deployed at 14 atmospheres, post-dilated with the stent delivery system up to 16 atmospheres and then to 18 atmospheres. The stent delivery system was removed. There existed small areas of waist in the proximal portion of the stent. Subsequently, a 2.75 x 12 mm noncompliant Emerge balloon was then used to further post-dilate this stent up to 16 to 18 atmospheres. The balloon was removed. Follow up angiogram was obtained revealing resolution of previously noted waist. SUDHA-3 flow throughout the vessel. No sign of complication, including perforation or dissection throughout the entire distance of the LAD. Subsequently at this time, the universal guide and guidewires were removed. The patient had follow up angiographic images of the right femoral arterial insertion site revealing the sheath to be well placed in the right common femoral artery. Subsequently a 6-Sing[place]an Perclose device was used to seal the vessel after 2 devices failed and successfully this completed the procedure. There were no known complications. FINDINGS: 1. Coronary angiography. The patient has the LAD and circumflex arising from a separate ostium. The patient's circumflex vessel in limited views revealed a widely patent stent in its midportion and then an area of moderate stenosis just at the distal approximately 50-60 percent. The LAD proximally was a 2.5 mm vessel and in its mid proximal portion was 100 percent occluded and could be seen to fill faintly distally via collaterals. 2. PTCA and stent placement. Prior to PTCA and stent placement, the patient had a 100 percent occlusion in her proximal to mid LAD. Post PTCA and stent placement, patient has no residual stenosis, SUDHA-3 flow throughout the entire distance of the LAD to the apex and no sign of complication, including perforation or dissection. TOTAL FLUORO TIME: 17.6 minutes. TOTAL CONTRAST: 200 mL. IMPRESSION: Multivessel obstructive coronary disease with 100 percent occluded chronic occlusion of the left anterior descending, status post successful percutaneous transluminal coronary angioplasty and stent placement with drug-eluting stents x2. RECOMMENDATIONS: In light of procedure and success at this time, we will: 1. Maintain patient on Brilinta 90 mg 1 tab p.o. b.i.d. 2. Continue patient on aspirin 81 mg 1 tab p.o. daily. 3. Maximize medical management. 4. Aggressive risk factor reduction. 5. The patient was admitted to the ICU for post cath observation, continue managing symptoms. ADDENDUM: At the completion of the procedure, the patient received 180 mg of Brilinta and 325 mg of aspirin. Dictated By: Jonathan Richards MD /oscar/efren /Document#: [id number]
[2017-06-15] MEDS: ACCU-CHEK XX SCH ×3 (01:47→14:01)
[2017-06-15] MEDS: PANTOPRAZOLE (EC) 40 MG TAB PO SCH (05:07)
[2017-06-15 05:59] LABS: BASOPHILS % 0.2 % (0.0-2.0); EOSINOPHILS # 0.3 10^3/ul (0.0-0.5); EOSINOPHILS % 4.1 % (0.0-7.0); HEMATOCRIT 33.2 % (37.0-47.0); HEMOGLOBIN 10.2 g/dl (12.0-16.0); LYMPHOCYTES # 1.6 10^3/ul (0.8-2.9); LYMPHOCYTES % 19.9 % (15.0-51.0); MEAN CORPUSCULAR HEMOGLOBIN 26.6 pg (29.0-33.0); MEAN CORPUSCULAR HGB CONC 30.7 g/dl (32.0-37.0); MEAN CORPUSCULAR VOLUME 86.7 fl (82.0-101.0); MEAN PLATELET VOLUME 11.9 fl (7.4-10.4); MONOCYTE # 0.5 10^3/ul (0.3-0.9); MONOCYTES % 6.1 % (0.0-11.0); NEUTROPHIL # 5.6 10^3/ul (1.6-7.5); NEUTROPHILS % 69.5 % (39.0-77.0); PLATELET COUNT 224 10^3/UL (140-415); RED BLOOD COUNT 3.83 10^6/ul (4.20-5.40); RED CELL DISTRIBUTION WIDTH 14.4 % (11.5-14.5)
[2017-06-15 06:40] LABS: CALCIUM 8.9 mg/dl (8.4-10.2); CREATININE 0.79 mg/dl (0.44-1.00); POTASSIUM 4.3 mmol/L (3.5-5.1)
[2017-06-15] MEDS: INSULIN ASPART [NOVOLOG] 3 ML PEN SC SCH ×2 (07:35→12:03)
[2017-06-15] MEDS ORDERED: ASPIRIN 81 MG TAB PO SCH (09:00)
[2017-06-15] MEDS: POTASSIUM CHLORIDE (SR) 8 MEQ CAP PO SCH (09:18)
[2017-06-15] MEDS: FOLIC ACID 1 MG TAB PO SCH (09:18)
[2017-06-15] MEDS: NPH, HUMAN INSULIN ISOPHANE 3ML VIAL SC SCH (09:24)
[2017-06-15] MEDS: TICAGRELOR 90 MG TABLET PO SCH (09:24)
--- NOTE | 2017-06-15 13:52 | CONS ---
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 2.cardiomyopathy-EF 35-40% 3.h/o NSTEMI 4.HTN 5.Anemia Plan: OK to D/C F/U with Dr Richards Consultation Date/Type/Reason Admit Date/Time Jun 14, 2017 at 14:17 Initial Consult Date Type of Consultation: Cardiology Referring Provider: ALEX LOPEZ MD 24 HR Interval Summary Free Text/Dictation No CP, SOB, palp Exam/Review of Systems Vital Signs Vitals Vital Signs Date Time Temp Pulse Resp B/P Pulse Ox O2 Delivery O2 Flow Rate FiO2 06/15/17 08:00 77 06/15/17 08:00 97.9 17 125/110 95 Nasal Cannula 06/14/17 23:00 2.0 Intake and Output 06/14/17 06/14/17 06/15/17 15:00 23:00 07:00 Intake Total 225 ml 855 ml 315 ml Output Total 1 ml Balance 225 ml 854 ml 315 ml Exam Heart: RSR Lungs: Clear AbdL: B9 Ext: No edema Results Result Diagram: 06/15/1751606/15/17516 Results 24 hrs Laboratory Tests Test 06/14/17 15:27 06/14/17 17:43 06/14/17 20:52 06/15/17 05:17 Bedside Glucose 109 122 139 White Blood Count 8.0 Red Blood Count 3.83 L Hemoglobin 10.2 L Hematocrit 33.2 L Mean Corpuscular Volume 86.7 Mean Corpuscular Hemoglobin 26.6 L Mean Corpuscular Hemoglobin Concent 30.7 L Red Cell Distribution Width 14.4 Platelet Count 224 Mean Platelet Volume 11.9 H Neutrophils % 69.5 Lymphocytes % 19.9 Monocytes % 6.1 Eosinophils % 4.1 Basophils % 0.2 Nucleated Red Blood Cells % 0.0 Neutrophils # 5.6 Lymphocytes # 1.6 Monocytes # 0.5 Eosinophils # 0.3 Basophils # 0.0 Nucleated Red Blood Cells # 0.0 Sodium Level 140 Potassium Level 4.3 Chloride Level 106 Carbon Dioxide Level 28 Anion Gap 10 Blood Urea Nitrogen 12 Creatinine 0.79 Glucose Level 71 # Calcium Level 8.9 Test 06/15/17 07:59 06/15/17 09:17 06/15/17 12:01 06/15/17 13:31 Bedside Glucose 76 173 161 102 Medications Medications Current Medications Morphine Sulfate (morphine) 1 mg Q2H PRN IV FOR NON CARDIAC PAIN (4-10) Last administered on 06/14/17 12:34; Admin Dose 1 MG; Start 06/13/17 at 10:30 Carvedilol (Coreg) 12.5 mg BID PO Last administered on 06/15/17 09:22; Admin Dose 12.5 MG; Start 06/13/17 at 21:00 Folic Acid (Folic Acid) 1 mg DAILY PO Last administered on 06/15/17 09:18; Admin Dose 1 MG; Start 06/14/17 at 09:00 Lorazepam (Ativan) 1 mg DAILY PRN PO AGITATION/ANXIETY; Start 06/13/17 at 18:30 Nitroglycerin (Nitroglycerin (Sl Tab) 0.4 Mg) 0.4 tab [id number] PRN SL CHEST PAIN; Start 06/13/17 at 18:30 Insulin Human NPH (Humulin N) 20 unit HS SC Last administered on 06/14/17 21: 42; Admin Dose 20 UNIT; Start 06/13/17 at 21:00 Insulin Human NPH (Humulin N) 40 unit QAM SC Last administered on 06/15/17 09: 24; Admin Dose 40 UNIT; Start 06/14/17 at 09:00 Potassium Chloride (Micro-K) 8 meq DAILY PO Last administered on 06/15/17 09: 18; Admin Dose 8 MEQ; Start 06/14/17 at 09:00 Pantoprazole (Protonix Tab) 40 mg DAILY@06 PO Last administered on 06/15/17 05 :07; Admin Dose 40 MG; Start 06/14/17 at 06:00 Diagnostic Test (Pha) (Accu-Chek) 1 ea 02 XX ; Start 06/14/17 at 02:00 Atorvastatin Calcium (Lipitor) 40 mg HS PO Last administered on 06/14/17 20:54 ; Admin Dose 40 MG; Start 06/13/17 at 21:00 Miscellaneous Information 1 ea NOTE XX ; Start 06/13/17 at 18:30 Glucose (Glutose) 15 gm Q15M PRN PO DECREASED GLUCOSE; Start 06/13/17 at 18:30 Glucose (Glutose) 22.5 gm Q15M PRN PO DECREASED GLUCOSE; Start 06/13/17 at 18: 30 Dextrose (D50w Syringe) 25 ml Q15M PRN IV DECREASED GLUCOSE; Start 06/13/17 at 18:30 Dextrose (D50w Syringe) 50 ml Q15M PRN IV DECREASED GLUCOSE; Start 06/13/17 at 18:30 Glucagon (Glucagen) 1 mg Q15M PRN IM DECREASED GLUCOSE; Start 06/13/17 at 18:30 Glucose (Glutose) 15 gm Q15M PRN BUCCAL DECREASED GLUCOSE; Start 06/13/17 at 18 :30 Acetaminophen (Tylenol Tab) 650 mg Q4H PRN PO NON-CARDIAC PAIN LEVEL 1-3; Start 06/14/17 at 11:00 Oxycodone/ Acetaminophen (Percocet (5/ 325)) 1 tab Q4H PRN PO REPORTED NON- CARDIAC PAIN 4-7 Last administered on 06/14/17 17:04; Admin Dose 1 TAB; Start 06/14/17 at 11:00 Al Hydrox/Mg Hydrox/Simethicone (Mag-Al Plus) 30 ml Q4H PRN PO GASTROINTESTINAL UPSET; Start 06/14/17 at 11:00 Ondansetron HCl (Zofran Inj) 4 mg Q4H PRN IV NAUSEA AND/OR VOMITING; Start at 11:00 Ticagrelor (Brilinta) 90 mg BID PO Last administered on 06/15/17 09:24; Admin Dose 90 MG; Start 06/14/17 at 21:00 Aspirin (Aspirin) 81 mg DAILY PO Last administered on 06/15/17 09:18; Admin Dose 81 MG; Start 06/15/17 at 09:00 SHANTAL MINA MD Jun 15, 2017 13:52
--- NOTE | 2017-06-15 14:46 | PDOCDIS ---
Discharge Instructions CONDITION Patient Condition: Stable HOME CARE INSTRUCTIONS: Diet Instructions: ACTIVITY: Activity Restrictions: Slowly Increase Activity Rest between Activity Avoid heavy lifting Do not Drive Do not operate Machinery Do not operate Power Tool Avoid Heavy Housework Bathing Restrictions: Sponge Bath FOLLOW UP/APPOINTMENTS Follow-up Plan FU with PMD X 1 WEEK FU WITH Fuel Cell Assembler as recommended Call 911 or go to the nearest hospital if symptoms get worse. Plan of care DW dR [place]/staff/patient. DELMER VALADEZ Jun 15, 2017 14:45
[2017-06-15] MEDS ORDERED: ATOR40TA68 PO (14:47)
--- NOTE | 2017-06-15 14:48 | DS ---
Date/Time of Note Date/Time of Note DATE: 06/15/17 TIME: 14:48 Discharge Summary Admission/Discharge Info Admit Date/Time Jun 14, 2017 at 14:17 Discharge Date/Time Patient Condition: Stable Hospital Course Patient complains of right femoral site pain , no hematoma, BLE pulses present, continue Industry as needed for pain. Patient denies any chest pain denies any shortness of breath. Condition and plan of care discussed with patient's family at the bedside. Blood sugar is well controlled. Home Meds Active Scripts Atorvastatin* (Atorvastatin*) 40 Mg Tablet, 40 MG PO HS for 30 Days, TAB Prov:ARUN VALADEZBIR 06/15/17 Reported Medications Cyclosporine* (Restasis* Oph) 32 Ea Droperette 09/13/15 Olopatadine* (Pataday*) 0.2% - 2.5 Ml Drops 09/13/15 Metoprolol Succinate* (Toprol XL*) 50 Mg Tab.er.24h, 50 MG PO DAILY 09/13/15 Potassium Chloride (K-Tab ER) 8 Meq Tablet.er, 8 MEQ PO DAILY 09/13/15 Omeprazole* (Omeprazole*) 40 Mg Capsule.dr, 40 MG PO DAILY 09/13/15 Folic Acid* (Folic Acid*) 1 Mg Tablet, 1 MG PO DAILY 09/13/15 Lorazepam* (Lorazepam*) 1 Mg Tablet, 1 MG PO DAILY Y for AGITATION/ANXIETY, TAB 12/01/14 Nitroglycerin* (Nitrostat*) 0.4 Mg Tab.subl, 0.4 MG SL Q5MIN Y for CHEST PAIN, BOTTLE 10/08/14 Ticagrelor* (Brilinta*) 90 Mg Tablet, 90 MG PO Q12, TAB 09/30/14 Carvedilol* (Coreg*) 12.5 Mg Tablet, 12.5 MG PO BID, TAB 09/30/14 Zolpidem Tartrate* (Zolpidem Tartrate*) 10 Mg Tablet, 10 MG PO HS Y for INSOMNIA , TAB 09/29/14 Nph, Human Insulin Isophane (Humulin N) 100 Units/Ml Vial, 40 UNIT SC QAM, VIAL 09/29/14 Nph, Human Insulin Isophane (Humulin N) 100 Units/Ml Vial, 20 UNIT SC HS, VIAL 09/29/14 Discontinued Reported Medications Azithromycin* (Azithromycin*) 250 Mg Tablet, 250 MG PO DAILY, #4 TAB 09/13/15 Econazole Nitrate (Econazole Nitrate) 85 Gm Cream.gm. 09/13/15 Sitagliptin* (Januvia*) 100 Mg Tablet, 100 MG PO DAILY 09/13/15 Clobetasol Propionate* (Clobetasol Propionate*) 60 Gm Cream.gm. 09/13/15 Miconazole Nitrate* (Miconazole Nitrate*) 2% - 15 Gm Cr 09/13/15 Pseudoephedrine Hcl* (Pseudoephedrine Hcl*) 30 Mg Tablet, 30 MG PO 09/13/15 Aspirin* (Aspirin* (EC)) 81 Mg Tablet.dr, 81 MG PO DAILY, TAB 10/08/14 Atorvastatin Calcium (Atorvastatin Calcium) 10 Mg Tab, 10 MG PO HS, TAB 10/08/14 Follow-up Plan FU with PMD X 1 WEEK FU WITH Inventory Coordinator as recommended Call 911 or go to the nearest hospital if symptoms get worse. Plan of care DW dR [place]/staff/patient. Primary Care Provider Not On Staff Doctor Pending Labs Laboratory Tests Test 06/14/17 15:27 06/14/17 17:43 06/14/17 20:52 06/15/17 05:17 Bedside Glucose 109mg/dL (70-220) 122mg/dL (70-220) 139mg/dL (70-220) White Blood Count 8.010^3/ul (4.8-10.8) Red Blood Count 3.8310^6/ul (4.20-5.40) Hemoglobin 10.2g/dl (12.0-16.0) Hematocrit 33.2% (37.0-47.0) Mean Corpuscular Volume 86.7fl (82.0-101.0) Mean Corpuscular Hemoglobin 26.6pg (29.0-33.0) Mean Corpuscular Hemoglobin Concent 30.7g/dl (32.0-37.0) Red Cell Distribution Width 14.4% (11.5-14.5) Platelet Count 52639^3/UL (140-415) Mean Platelet Volume 11.9fl (7.4-10.4) Neutrophils % 69.5% (39.0-77.0) Lymphocytes % 19.9% (15.0-51.0) Monocytes % 6.1% (0.0-11.0) Eosinophils % 4.1% (0.0-7.0) Basophils % 0.2% (0.0-2.0) Nucleated Red Blood Cells % 0.0/100WBC (0.0-0.0) Neutrophils # 5.610^3/ul (1.6-7.5) Lymphocytes # 1.610^3/ul (0.8-2.9) Monocytes # 0.510^3/ul (0.3-0.9) Eosinophils # 0.310^3/ul (0.0-0.5) Basophils # 0.010^3/ul (0.0-0.1) Nucleated Red Blood Cells # 0.010^3/ul (0.0-0.0) Sodium Level 140mmol/L (135-144) Potassium Level 4.3mmol/L (3.5-5.1) Chloride Level 106mmol/L (97-110) Carbon Dioxide Level 28mmol/L (21-31) Anion Gap 10 (8-16) Blood Urea Nitrogen 12mg/dl (7-20) Creatinine 0.79mg/dl (0.44-1.00) Glucose Level 71mg/dl (70-220) Calcium Level 8.9mg/dl (8.4-10.2) Test 06/15/17 07:59 06/15/17 09:17 06/15/17 12:01 06/15/17 13:31 Bedside Glucose 76mg/dL (70-220) 173mg/dL (70-220) 161mg/dL (70-220) 102mg/dL (70-220) Microbiology Date/Time Source Procedure Growth Status 06/14/17 15:02 Nares MRSA Screen - Preliminary Screening in process Resulted DELMER VALADEZ Jun 15, 2017 14:48
[2017-06-15] MEDS ORDERED: INFLUENZA VIRUS VACCINE 0.5 ML SYG IM* ONE (17:00)
--- NOTE | 2017-06-17 08:38 | RADRPT ---
Vent Rate: 69 bpm RR Interval: 0 msec VA Interval: 190 msec QRS Duration: 90 msec QT Interval: 392 msec QTC Interval: 420 msec P-R-T Orient: 40 - 62 - 112 degrees Normal sinus rhythm Nonspecific ST and T wave abnormality Abnormal ECG Electronically Signed By: Tadeo Melvin [id number]
== END 2017-06-15 16:08 | disposition home or self-care (01) | DRG 247 ==
LOC: SDS 07:20 → REC 10:29 → TEL 13:05 → ICU 06-14 10:24 → OBSVTOIN 06-14 14:17 → ICU 06-14 15:44
PROVIDERS: ADMIT Internal Medicine; ATTEND Internal Medicine
PROC: 4A023N7 Measurement of Cardiac Sampling and Pressure, Left Heart, Percutaneous Approach (ICD-10-PCS; 2017-06-13)
PROC: B211YZZ Fluoroscopy of Multiple Coronary Arteries using Other Contrast (ICD-10-PCS; 2017-06-13)
PROC: B215YZZ Fluoroscopy of Left Heart using Other Contrast (ICD-10-PCS; 2017-06-13)
PROC: B210YZZ Fluoroscopy of Single Coronary Artery using Other Contrast (ICD-10-PCS; principal; 2017-06-14 09:00)
PROC: 027035Z Dilation of Coronary Artery, One Artery with Two Drug-eluting Intraluminal Devices, Percutaneous Approach (ICD-10-PCS; 2017-06-14 09:00)
DX: I25.119 Atherosclerotic heart disease of native coronary artery with unspecified angina pectoris (principal); I42.9 Cardiomyopathy, unspecified; I25.82 Chronic total occlusion of coronary artery; E11.9 Type 2 diabetes mellitus without complications; I10 Essential (primary) hypertension; D64.9 Anemia, unspecified; E78.5 Hyperlipidemia, unspecified; Z85.3 Personal history of malignant neoplasm of breast; Z90.12 Acquired absence of left breast and nipple; Z92.3 Personal history of irradiation; E78.00 Pure hypercholesterolemia, unspecified; E66.9 Obesity, unspecified; Z68.29 Body mass index [BMI] 29.0-29.9, adult; I25.2 Old myocardial infarction
CPT/HCPCS: 71010; 80048; 80061; 82962; 83036; 85025; 85610; 85730; 87081; 90686; 93005; 93458; 99217; G0378; C1725; C1760; C1874; C1887; C1894; C9608; J0583; J1644; J1815; J2250; J2270; J3010; J7030; Q9967